=== PATIENT | male | born 1970 | race Caucasian/White ===

== ENCOUNTER → 2018-01-08 | Outpatient (CLI) | payer BC ==
--- NOTE | 2018-01-08 16:34 | CONS ---
CONSULTATION DATE OF SERVICE: 01/08/2018 47-year-old gentleman has [facility] for possible obstructive sleep apnea-hypopnea syndrome. HISTORY OF PRESENT ILLNESS/SLEEP WAKE EVALUATION: SLEEP SCHEDULE: Patient usual sleep schedule from midnight until 5:00 a.m. on working days and from midnight to 10 or 10:30 am on weekends. FALLING ASLEEP: No problems with falling asleep, although he has TV set in bedroom. DURING SLEEP: Usually sleeps on the back position. According to his , he has loud snoring and witnessed episodes of stopped breathing during the sleep. He has episodes of awakening from sleep with palpitations. He sleeps with sometimes opening his mouth at night. DURING THE DAY/SLEEP WAKE EVALUATION: During the day, he has episodes of falling asleep, has problem with the memory. [place] Sleepiness Scale significantly increased to 11. PAST MEDICAL HISTORY: Positive for episodes of paroxysmal atrial fibrillation, happened for the last 15 years, about 1-2 times per year, hyperlipidemia. PAST SURGICAL HISTORY: Bilateral hip osteotomy in 1976. MEDICATIONS: Losartan, Zocor, Flecainide on p.r.n. basis. SOCIAL HISTORY: Negative for smoking. Alcohol consumption rarely. FAMILY HISTORY: Heart problems, hyperlipidemia. REVIEW OF SYSTEMS: Breathing during sleep with open-mouth, snoring, witnessed episodes of stopped breathing, sleepiness during the day, episodes of cardiac arrhythmia. PHYSICAL EXAM: gentleman without distress. BP 124/76, HR 82, RR 16, height 5 feet 11 inches, weight 245, BMI 34.1, temperature 98.5, oxygen saturation on room air 96%. Oropharynx extremely low position of soft palate. Restriction of nasal breathing, wide neck, 18 inches in circumference. LUNGS Clear to percussion and to auscultation. Good air exchange. No wheezing or rhonchi. HEART S1, S2 regular. No murmurs, gallops, or rubs. ABDOMEN: Slightly obese. Soft and nontender. Bowel sounds are present. No organomegaly appreciated. FABRIC INSPECTOR Awake, alert, and oriented X3. Cranial nerves 2 to 7 intact. There is no fasciculation or atrophy. noted. No focal deficits observed. EXTREMITIES: Tendency for swelling of ankles, very minimal. IMPRESSION: 1. Snoring, witnessed episodes of stopped breathing during the sleep, extremely low position of soft palate. Restriction of nasal breathing, wide neck 18 inches in circumference. Excessive daytime sleepiness. [place] Sleepiness Scale is 11. Obstructive sleep apnea-hypopnea syndrome. 2. Obesity, BMI 34.1. 3. History of paroxysmal atrial fibrillation. 4. Hyperlipidemia. 5. Status post bilateral hip osteotomy in 1976. PLAN: 1. Polysomnography for evaluation of patient's breathing during sleep. 2. CPAP/BiPAP titration if sleep study confirms obstructive sleep apnea-hypopnea syndrome. 3. Preferable position during sleep on the side. 4. No driving if patient feels any sleepiness. 5. I will see patient for follow up visit to explain results of testing and following plan. Thank you very much for referring this patient for consultation. Sincerely, Cresencio Fleming MD, PhD, FAASM Diplomat of [place] [employer] [employer] Operator of [facility] [place] MMODL / CLAUDIAN: [phone] /
== END | disposition home or self-care (01) ==
LOC: SLEEP 14:36
PROVIDERS: ATTEND Internal Medicine
DX: G47.33 Obstructive sleep apnea (adult) (pediatric) (principal); E66.9 Obesity, unspecified; E78.5 Hyperlipidemia, unspecified; Z68.34 Body mass index [BMI] 34.0-34.9, adult; Z86.79 Personal history of other diseases of the circulatory system; Z98.890 Other specified postprocedural states; Z79.899 Other long term (current) drug therapy
CPT/HCPCS: 99211

== ENCOUNTER 2019-03-05 03:01 | Emergency (ER) | payer BC ==
[2019-03-05 03:10] VITALS: RESP 18; TEMP 98.8
[2019-03-05 03:49] LABS: Basophils % (A) 0 %; Eosinophils # (A) 0.1 k/uL (0-0.7); Eosinophils % (A) 1 %; HCT 47.4 % (39.0-53.0); HGB 15.9 gm/dL (13.0-17.5); Lymphocytes # (A) 1.3 k/uL (1.0-4.8); Lymphocytes % (A) 11 %; MCHC 33.6 g/dL (31.0-37.0); MCV 89.1 fL (80.0-100.0); Monocytes # (A) 0.8 k/uL (0-1.0); Monocytes % (A) 7 %; Neutrophils # (A) 9.1 k/uL (1.3-7.7); Neutrophils % (A) 79 %; Platelet Count 291 k/uL (150-450); RBC 5.32 m/uL (4.30-5.90); RDW 13.3 % (11.5-15.5); WBC 11.5 k/uL (3.8-10.6)
[2019-03-05] MEDS ORDERED: KETOROLAC 30 MG/ML 1 ML VIAL IVP STA (03:50)
[2019-03-05] MEDS ORDERED: SODIUM CHLORIDE 0.9% 500 ML 500 ML IV STA (03:50)
--- NOTE | 2019-03-05 03:53 | ED ---
Abdominal Pain HPI - General Chief Complaint: Abdominal Pain Stated Complaint: Abd Pain Time Seen by Provider: 03/05/19 03:44 Source: patient Mode of arrival: ambulatory Limitations: no limitations - History of Present Illness MD Complaint: abdominal pain -: hour(s) Location: periumbilical Radiation: none Migration to: no migration Severity: severe Quality: aching Consistency: constant Improves With: nothing Worsens With: other (Palpation) Associated Symptoms: nausea, diarrhea - Related Data Home Medications Medication Instructions Recorded Confirmed Flecainide [Tambocor] 50 mg PO Q12HR 03/05/19 03/05/19 Lisinopril [Prinivil] 10 mg PO DAILY 03/05/19 03/05/19 Simvastatin [Zocor] 20 mg PO HS 03/05/19 03/05/19 Allergies Allergy/AdvReac Type Severity Reaction Status Date / Time codeine Allergy Unknown Verified 02/04/14 23:48 morphine Allergy Unknown Verified 02/04/14 23:48 Review of Systems ROS Statement: Those systems with pertinent positive or pertinent negative responses have been documented in the HPI. ROS Other: All systems not noted in ROS Statement are negative. Constitutional: Denies: fever, chills Respiratory: Denies: cough, dyspnea Cardiovascular: Denies: chest pain Gastrointestinal: Reports: abdominal pain, nausea, diarrhea. Denies: vomiting, constipation, melena, hematochezia Genitourinary: Denies: dysuria, hematuria, testicular pain Musculoskeletal: Denies: back pain Skin: Denies: rash Neurological: Denies: headache Past Medical History Past Medical History: Atrial Fibrillation History of Any Multi-Drug Resistant Organisms: None Reported Past Surgical History: Orthopedic Surgery Additional Past Surgical History / Comment(s): Hip 1976, rotational osteotomy Past Anesthesia/Blood Transfusion Reactions: No Reported Reaction Past Psychological History: No Psychological Hx Reported Smoking Status: Never smoker Past Alcohol Use History: None Reported Past Drug Use History: None Reported - Past Family History Mother Family Medical History: Myocardial Infarction ([place]) General Exam Limitations: no limitations General appearance: alert, in no apparent distress Head exam: Present: atraumatic, normocephalic Eye exam: Present: normal appearance. Absent: scleral icterus, conjunctival injection ENT exam: Present: normal oropharynx Respiratory exam: Present: normal lung sounds bilaterally. Absent: respiratory distress, wheezes, rales, rhonchi, stridor Cardiovascular Exam: Present: regular rate, normal rhythm, normal heart sounds. Absent: systolic murmur, diastolic murmur, rubs, gallop GI/Abdominal exam: Present: soft, tenderness, guarding, normal bowel sounds, hernia (There is a tender umbilical hernia was easily reduced at the bedside.). Absent: distended, rebound, rigid, mass, pulsatile mass Extremities exam: Present: normal inspection, normal capillary refill. Absent: pedal edema, calf tenderness Back exam: Present: normal inspection. Absent: CVA tenderness (R), CVA tenderness (L) Neurological exam: Present: alert Skin exam: Present: warm, dry, intact, normal color. Absent: rash Course Vital Signs 03/05/19 03:07 Temperature 98.8 F Pulse Rate 54 L Respiratory 18 Rate Blood Pressure 145/90 O2 Sat by Pulse 95 Oximetry Medical Decision Making - Lab Data Result diagrams: 03/05/19 03:25 03/05/19 03:25 Lab Results 03/05/19 03/05/19 Range/Units 03:25 03:25 WBC 11.5 H (3.8-10.6) k/uL RBC 5.32 (4.30-5.90) m/uL Hgb 15.9 (13.0-17.5) gm/dL Hct 47.4 (39.0-53.0) % MCV 89.1 (80.0-100.0) fL MCH 30.0 (25.0-35.0) pg MCHC 33.6 (31.0-37.0) g/dL RDW 13.3 (11.5-15.5) % Plt Count 291 (150-450) k/uL Neutrophils % 79 % Lymphocytes % 11 % Monocytes % 7 % Eosinophils % 1 % Basophils % 0 % Neutrophils # 9.1 H (1.3-7.7) k/uL Lymphocytes # 1.3 (1.0-4.8) k/uL Monocytes # 0.8 (0-1.0) k/uL Eosinophils # 0.1 (0-0.7) k/uL Basophils # 0.0 (0-0.2) k/uL Sodium 139 (137-145) mmol/L Potassium 4.1 (3.5-5.1) mmol/L Chloride 105 (98-107) mmol/L Carbon Dioxide 21 L (22-30) mmol/L Anion Gap 13 mmol/L BUN 16 (9-20) mg/dL Creatinine 0.89 (0.66-1.25) mg/dL Est GFR (CKD-EPI)AfAm >90 (>60 ml/min/1.73 sqM) Est GFR (CKD-EPI)NonAf >90 (>60 ml/min/1.73 sqM) Glucose 162 H (74-99) mg/dL Calcium 9.6 (8.4-10.2) mg/dL Total Bilirubin 0.7 (0.2-1.3) mg/dL AST 26 (17-59) U/L ALT 41 (21-72) U/L Alkaline Phosphatase 105 (38-126) U/L Total Protein 7.9 (6.3-8.2) g/dL Albumin 4.7 (3.5-5.0) g/dL Amylase 41 (30-110) U/L Lipase 69 (23-300) U/L Disposition Clinical Impression: Umbilical hernia Disposition: HOME SELF-CARE Condition: Good Instructions (If sedation given, give patient instructions): Umbilical Hernia (ED) Is patient prescribed a controlled substance at d/c from ED?: No Referrals: Yaakov Mcdaniel MD [Primary Care Provider] - 1-2 days Nic Jean MD [Medical Doctor] - 1-2 days
[2019-03-05 04:03] LABS: ALT 41 U/L (21-72); AST 26 U/L (17-59); African American GFR (CKD) >90 (>60 ml/min/1.73 sqM); Albumin 4.7 g/dL (3.5-5.0); Alkaline Phosphatase 105 U/L (38-126); Amylase 41 U/L (30-110); Anion Gap 13 mmol/L; Blood Urea Nitrogen 16 mg/dL (9-20); Calcium 9.6 mg/dL (8.4-10.2); Carbon Dioxide 21 mmol/L (22-30); Chloride 105 mmol/L (98-107); Glucose 162 mg/dL (74-99); Non-African American GFR(CKD) >90 (>60 ml/min/1.73 sqM); Potassium 4.1 mmol/L (3.5-5.1); Sodium 139 mmol/L (137-145); Total Bilirubin 0.7 mg/dL (0.2-1.3); Total Protein 7.9 g/dL (6.3-8.2)
--- NOTE | 2019-03-05 04:04 | XR ---
EXAMINATION TYPE: XR KUB DATE OF EXAM: 03/05/2019 COMPARISON: NONE HISTORY: Abdominal pain TECHNIQUE: 2 views upright FINDINGS: There are some distended gas-filled loops of small bowel in the mid abdomen. There is no si gn of free air. Lung bases are clear. There is small amount of gas in the large bowel. IMPRESSION: No free air. Distended small bowel with gas that could relate to ileus or partial mechani juan obstruction.
[2019-03-05 06:34] LABS: Amorphous Sediment,Urine Rare /hpf; Appearance,Urine Cloudy (Clear); Bacteria,Urine Rare /hpf; Bilirubin,Urine Negative (Negative); Blood,Urine Negative (Negative); Color,Urine Yellow; Glucose,Urine (UA) Negative (Negative); Hyaline Casts,Urine 17 /lpf (0-2); Ketones,Urine Negative (Negative); Leukocyte Esterase,Urine Negative (Negative); Mucus,Urine Many /hpf; Nitrite,Urine Negative (Negative); PH, Urine 5.5 (5.0-8.0); Protein,Urine 1+ (Negative); RBC,Urine <1 /hpf (0-5); Specific Gravity,Urine 1.034 (1.001-1.035); Squamous Epithelial Cell,Urine <1 /hpf (0-4); Urobilinogen,Urine <2.0 mg/dL (<2.0)
[2019-03-05 06:37] VITALS: BP 138/93; PULSE 86
== END 2019-03-05 06:37 | disposition home or self-care (01) ==
LOC: EC 03:01
DX: K42.9 Umbilical hernia without obstruction or gangrene (principal); R19.7 Diarrhea, unspecified; I48.91 Unspecified atrial fibrillation; Z88.5 Allergy status to narcotic agent; Z79.899 Other long term (current) drug therapy
CPT/HCPCS: 36415; 74018; 80053; 81001; 82150; 83690; 85025; 96361; 96374; 99284

== ENCOUNTER 2019-03-06 22:45 | Observation (INO) | payer BC ==
[2019-03-06] MEDS ORDERED: MORPHINE SULFATE 4 MG/ML SYRINGE IVP STA (23:42)
[2019-03-07 00:18] LABS: Basophils % (A) 0 %; Eosinophils # (A) 0.1 k/uL (0-0.7); Eosinophils % (A) 2 %; HCT 49.1 % (39.0-53.0); HGB 16.7 gm/dL (13.0-17.5); Lymphocytes # (A) 1.3 k/uL (1.0-4.8); Lymphocytes % (A) 15 %; MCH 30.1 pg (25.0-35.0); MCHC 33.9 g/dL (31.0-37.0); MCV 88.7 fL (80.0-100.0); Mean Platelet Volume 7.6; Monocytes % (A) 11 %; Neutrophils # (A) 5.8 k/uL (1.3-7.7); Neutrophils % (A) 69 %; Platelet Count 313 k/uL (150-450); RBC 5.54 m/uL (4.30-5.90); RDW 13.2 % (11.5-15.5); WBC 8.4 k/uL (3.8-10.6)
[2019-03-07 00:20] LABS: Appearance,Urine Clear (Clear); Bilirubin,Urine Negative (Negative); Blood,Urine Negative (Negative); Calcium Oxalate Crystals,Urine Occasional /hpf; Color,Urine Yellow; Glucose,Urine (UA) Negative (Negative); Hyaline Casts,Urine 1 /lpf (0-2); Ketones,Urine Negative (Negative); Leukocyte Esterase,Urine Negative (Negative); Mucus,Urine Many /hpf; Nitrite,Urine Negative (Negative); Protein,Urine 1+ (Negative); RBC,Urine 2 /hpf (0-5); Specific Gravity,Urine 1.037 (1.001-1.035); Squamous Epithelial Cell,Urine <1 /hpf (0-4); Urobilinogen,Urine <2.0 mg/dL (<2.0); WBC,Urine 1 /hpf (0-5)
[2019-03-07 00:26] LABS: INR 0.9 (<1.2); Partial Thromboplastin Time 27.6 sec (22.0-30.0); Prothrombin Time 10.2 sec (9.0-12.0)
[2019-03-07 00:31] LABS: ALT 49 U/L (21-72); AST 22 U/L (17-59); African American GFR (CKD) >90 (>60 ml/min/1.73 sqM); Albumin 4.4 g/dL (3.5-5.0); Alkaline Phosphatase 95 U/L (38-126); Anion Gap 12 mmol/L; Blood Urea Nitrogen 18 mg/dL (9-20); Calcium 9.6 mg/dL (8.4-10.2); Carbon Dioxide 21 mmol/L (22-30); Chloride 105 mmol/L (98-107); Glucose 147 mg/dL (74-99); Non-African American GFR(CKD) 89 (>60 ml/min/1.73 sqM); Potassium 3.7 mmol/L (3.5-5.1); Sodium 138 mmol/L (137-145); Total Bilirubin 0.7 mg/dL (0.2-1.3); Total Protein 7.2 g/dL (6.3-8.2)
--- NOTE | 2019-03-07 01:16 | CT ---
EXAMINATION TYPE: CT abdomen pelvis w con DATE OF EXAM: 03/07/2019 COMPARISON: None HISTORY: umbilical hernia pain CT DLP: 1649.8 mGycm Automated exposure control for dose reduction was used. TECHNIQUE: Helical acquisition of images was performed from the lung bases through the pelvis. CONTRAST: Performed without Oral Contrast and with IV Contrast, patient injected with 100 mL of Isovue 300. FINDINGS: Lung bases are clear. There is no pleural effusion. Heart size is normal. There is no pericardial eff usion. Liver spleen pancreas, bladder appear normal. Bile ducts are not dilated. Stomach is intact. There is no adrenal mass. Kidneys show satisfactory contrast opacification. There is no hydronephrosi s. Bladder is almost empty. There is no inguinal hernia. There is no free fluid in the pelvis. Append ix appears normal. Ureters are not dilated. There are some distended air and fluid-filled small bowel loops in the mid abdomen. The distal ileum is not dilated. Small bowel is dilated up to 3.6 cm. There is broad-based umbilical hernia that contains fat. There is no evidence of incarcerated hernia. There is no mesenteric edema. There is no ascites. There is no free air. Lumbar spine is intact. There is narrowing of L5-S1 disc space with vacuum disc. There is no compress ion fracture. Bony pelvis is intact. IMPRESSION: DILATED SMALL BOWEL SUGGESTIVE OF ILEUS OR PARTIAL MECHANICAL OBSTRUCTION. TRANSITION POINT NOT SEEN. Normal appendix. No incarcerated bowel. Broad-based fat-containing umbilical hernia.
--- NOTE | 2019-03-07 01:47 | ED ---
General Adult HPI - General Chief complaint: Recheck/Abnormal Lab/Rx Stated complaint: Abdominal Pain Time Seen by Provider: 03/06/19 23:05 Source: patient Mode of arrival: ambulatory Limitations: no limitations - History of Present Illness Initial comments: The patient is a 48 year old male with past medical history of A. fib who presents emergency room with reported abdominal pain. The patient was seen yesterday at our facility for periumbilical pain. He is found to have an easily reducible umbilical hernia. Laboratory studies were conducted as well as a KUB. The patient received adequate pain control with Toradol and was discharged home. He states that he went home and today he had return of his abdominal pain. It was much more severe than yesterday. He states that the pain is situated around his umbilicus as well as diffuse abdominal pain. He did not take anything for his symptoms. Reports that he has had profuse watery diarrhea . No recent antibiotic use or contact with C. diff. He denies changes in his urination to include dysuria, hematuria or difficulty voiding. States he hasn't been able to eat anything today due to nausea. No fevers or chills. Denies any change in the umbilical bulge. There are no other alleviating, precipitating or modifying factors - Related Data Home Medications Medication Instructions Recorded Confirmed Flecainide [Tambocor] 50 mg PO Q12HR PRN 03/05/19 03/07/19 Lisinopril [Prinivil] 10 mg PO DAILY 03/05/19 03/07/19 Simvastatin [Zocor] 20 mg PO HS 03/05/19 03/07/19 Allergies Allergy/AdvReac Type Severity Reaction Status Date / Time codeine Allergy Unknown Verified 03/07/19 07:47 Review of Systems ROS Statement: Those systems with pertinent positive or pertinent negative responses have been documented in the HPI. ROS Other: All systems not noted in ROS Statement are negative. Past Medical History Past Medical History: Atrial Fibrillation History of Any Multi-Drug Resistant Organisms: None Reported Past Surgical History: Orthopedic Surgery Additional Past Surgical History / Comment(s): Hip 1976, rotational osteotomy Past Anesthesia/Blood Transfusion Reactions: No Reported Reaction Past Psychological History: No Psychological Hx Reported Smoking Status: Never smoker Past Alcohol Use History: None Reported Past Drug Use History: None Reported - Past Family History Mother Family Medical History: Myocardial Infarction ([place]) General Exam Limitations: no limitations General appearance: alert, in no apparent distress Head exam: Present: atraumatic, normocephalic, normal inspection Eye exam: Present: normal appearance, PERRL, EOMI. Absent: scleral icterus, conjunctival injection, periorbital swelling ENT exam: Present: normal exam, mucous membranes moist Neck exam: Present: normal inspection. Absent: tenderness, meningismus, lymphadenopathy Respiratory exam: Present: normal lung sounds bilaterally. Absent: respiratory distress, wheezes, rales, rhonchi, stridor Cardiovascular Exam: Present: regular rate, normal rhythm, normal heart sounds. Absent: systolic murmur, diastolic murmur, rubs, gallop, clicks GI/Abdominal exam: Present: soft, distended, tenderness (periumbilical, with her roslyn that is easily reducible), diminished bowel sounds. Absent: guarding, rebound, rigid Extremities exam: Present: normal inspection, full ROM, normal capillary refill. Absent: tenderness, pedal edema, joint swelling, calf tenderness Back exam: Present: normal inspection Neurological exam: Present: alert, oriented X3, CN II-XII intact Psychiatric exam: Present: normal affect, normal mood Skin exam: Present: warm, dry, intact, normal color. Absent: rash Course Vital Signs 03/06/19 03/07/19 23:03 01:06 Temperature 97.9 F Pulse Rate 107 H 88 Respiratory 16 18 Rate Blood Pressure 127/82 129/85 O2 Sat by Pulse 97 98 Oximetry Medical Decision Making - Medical Decision Making Upon arrival the patient was placed into room 3. A thorough history and physical exam is performed. Physical exam does demonstrate a small bulge in the periumbilical region however this is easily reduced but very tender for the patient. I did provide him with 4 mg of morphine. I did recommend laboratory studies which demonstrates a glucose of 147. Urinalysis shows occasional calcium oxide crystals and 1+ protein. CT of the patient's abdomen and pelvis is performed which demonstrates dilated small bowel suggestive of ileus or partial mechanical obstruction without transition point. Broadbase fat- containing umbilical hernia. I did revaluate the patient is a he does report that he has had mild improvement with the morphine administration. I discussed diagnosis, differential and treatment options. Patient is concerned with discharge at this time as this is his second visit to the ER and his pain has not completely resided. Because of this I did offer hospital admission with surgical consult. The patient understood this. Bridging orders were placed and the patient was transferred to the floor in stable condition - Lab Data Result diagrams: 03/08/19 06:26 03/10/19 07:08 Lab Results 03/06/19 03/06/19 03/06/19 Range/Units 23:51 23:51 23:51 WBC 8.4 (3.8-10.6) k/uL RBC 5.54 (4.30-5.90) m/uL Hgb 16.7 (13.0-17.5) gm/dL Hct 49.1 (39.0-53.0) % MCV 88.7 (80.0-100.0) fL MCH 30.1 (25.0-35.0) pg MCHC 33.9 (31.0-37.0) g/dL RDW 13.2 (11.5-15.5) % Plt Count 313 (150-450) k/uL Neutrophils % 69 % Lymphocytes % 15 % Monocytes % 11 % Eosinophils % 2 % Basophils % 0 % Neutrophils # 5.8 (1.3-7.7) k/uL Lymphocytes # 1.3 (1.0-4.8) k/uL Monocytes # 1.0 (0-1.0) k/uL Eosinophils # 0.1 (0-0.7) k/uL Basophils # 0.0 (0-0.2) k/uL PT (9.0-12.0) sec INR (<1.2) APTT (22.0-30.0) sec Sodium 138 (137-145) mmol/L Potassium 3.7 (3.5-5.1) mmol/L Chloride 105 (98-107) mmol/L Carbon Dioxide 21 L (22-30) mmol/L Anion Gap 12 mmol/L BUN 18 (9-20) mg/dL Creatinine 1.00 (0.66-1.25) mg/dL Est GFR (CKD-EPI)AfAm >90 (>60 ml/min/1.73 sqM) Est GFR (CKD-EPI)NonAf 89 (>60 ml/min/1.73 sqM) Glucose 147 H (74-99) mg/dL Plasma Lactic Acid Thomas 1.7 (0.7-2.0) mmol/L Calcium 9.6 (8.4-10.2) mg/dL Total Bilirubin 0.7 (0.2-1.3) mg/dL AST 22 (17-59) U/L ALT 49 (21-72) U/L Alkaline Phosphatase 95 (38-126) U/L Total Protein 7.2 (6.3-8.2) g/dL Albumin 4.4 (3.5-5.0) g/dL Urine Color Urine Appearance (Clear) Urine pH (5.0-8.0) Ur Specific [place] (1.001-1.035) Urine Protein (Negative) Urine Glucose (UA) (Negative) Urine Ketones (Negative) Urine Blood (Negative) Urine Nitrite (Negative) Urine Bilirubin (Negative) Urine Urobilinogen (<2.0) mg/dL Ur Leukocyte Esterase (Negative) Urine RBC (0-5) /hpf Urine WBC (0-5) /hpf Ur Squamous Epith Cells (0-4) /hpf Calcium Oxalate Crystal (None) /hpf Hyaline Casts (0-2) /lpf Urine Mucus (None) /hpf 03/06/19 03/06/19 Range/Units 23:51 23:51 WBC (3.8-10.6) k/uL RBC (4.30-5.90) m/uL Hgb (13.0-17.5) gm/dL Hct (39.0-53.0) % MCV (80.0-100.0) fL MCH (25.0-35.0) pg MCHC (31.0-37.0) g/dL RDW (11.5-15.5) % Plt Count (150-450) k/uL Neutrophils % % Lymphocytes % % Monocytes % % Eosinophils % % Basophils % % Neutrophils # (1.3-7.7) k/uL Lymphocytes # (1.0-4.8) k/uL Monocytes # (0-1.0) k/uL Eosinophils # (0-0.7) k/uL Basophils # (0-0.2) k/uL PT 10.2 (9.0-12.0) sec INR 0.9 (<1.2) APTT 27.6 (22.0-30.0) sec Sodium (137-145) mmol/L Potassium (3.5-5.1) mmol/L Chloride (98-107) mmol/L Carbon Dioxide (22-30) mmol/L Anion Gap mmol/L BUN (9-20) mg/dL Creatinine (0.66-1.25) mg/dL Est GFR (CKD-EPI)AfAm (>60 ml/min/1.73 sqM) Est GFR (CKD-EPI)NonAf (>60 ml/min/1.73 sqM) Glucose (74-99) mg/dL Plasma Lactic Acid Thomas (0.7-2.0) mmol/L Calcium (8.4-10.2) mg/dL Total Bilirubin (0.2-1.3) mg/dL AST (17-59) U/L ALT (21-72) U/L Alkaline Phosphatase (38-126) U/L Total Protein (6.3-8.2) g/dL Albumin (3.5-5.0) g/dL Urine Color Yellow Urine Appearance Clear (Clear) Urine pH 6.0 (5.0-8.0) Ur Specific [place] 1.037 H (1.001-1.035) Urine Protein 1+ H (Negative) Urine Glucose (UA) Negative (Negative) Urine Ketones Negative (Negative) Urine Blood Negative (Negative) Urine Nitrite Negative (Negative) Urine Bilirubin Negative (Negative) Urine Urobilinogen <2.0 (<2.0) mg/dL Ur Leukocyte Esterase Negative (Negative) Urine RBC 2 (0-5) /hpf Urine WBC 1 (0-5) /hpf Ur Squamous Epith Cells <1 (0-4) /hpf Calcium Oxalate Crystal Occasional H (None) /hpf Hyaline Casts 1 (0-2) /lpf Urine Mucus Many H (None) /hpf Disposition Clinical Impression: Umbilical hernia, Ileus Disposition: ADMITTED IP TO THIS [facility] Condition: Stable Is patient prescribed a controlled substance at d/c from ED?: No Decision to Admit Reason: Admit from EC Decision Date: 03/07/19 Decision Time: 01:47
[2019-03-07] MEDS ORDERED: ONDANSETRON 4 MG/2 ML VIAL IVP PRN (01:48)
[2019-03-07] MEDS ORDERED: NALOXONE 0.4 MG/ML 1 ML VIAL IV PRN (01:48)
[2019-03-07] MEDS: SODIUM CHLORIDE 0.9% 1,000 ML IV SCH ×3 (02:03→19:46)
[2019-03-07] MEDS: MORPHINE SULFATE 4 MG/ML SYRINGE IV PRN ×2 (04:11→11:55)
[2019-03-07] MEDS: LISINOPRIL 10 MG TAB PO SCH (08:22)
--- NOTE | 2019-03-07 10:36 | P.GSCN ---
History of Present Illness Consult date: 03/07/19 Reason for Consult: Abdominal pain History of present illness: 48-year-old male comes in the hospital with a 3 to four-day history of abdominal bloating, diarrhea, and crampy abdominal pain. Pain is centered around the umbilicus. History of known umbilical hernia. Patient says he was having up to 10-15 bowel moments per day. Patient had abdominal x-rays when he came to the ER the first time. Yesterday when he came back to the ER CAT scan was performed which showed ileus versus SBO. No transition point seen. Gradual tapering at the junction between dilated and normal small bowel. 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 He has been nauseated. White blood cell count is normal. He is afebrile. No tachycardia. Review of Systems The patient denies any acute changes in vision or hearing, no dysphagia or odynophagia, no chest pain or shortness of breath, no dysuria or hematuria, no headache, no runny nose, no rectal bleeding or melena, no unexplained weight loss Past Medical History Past Medical History: Atrial Fibrillation History of Any Multi-Drug Resistant Organisms: None Reported Past Surgical History: Orthopedic Surgery Additional Past Surgical History / Comment(s): Hip 1976, rotational osteotomy Past Anesthesia/Blood Transfusion Reactions: No Reported Reaction Past Psychological History: No Psychological Hx Reported Smoking Status: Never smoker Past Alcohol Use History: None Reported Past Drug Use History: None Reported - Past Family History Mother Family Medical History: Myocardial Infarction ([place]) Medications and Allergies Home Medications Medication Instructions Recorded Confirmed Type Flecainide [Tambocor] 50 mg PO Q12HR PRN 03/05/19 03/07/19 History Lisinopril [Prinivil] 10 mg PO DAILY 03/05/19 03/07/19 History Simvastatin [Zocor] 20 mg PO HS 03/05/19 03/07/19 History Allergies Allergy/AdvReac Type Severity Reaction Status Date / Time codeine Allergy Unknown Verified 03/07/19 07:47 Surgical - Exam Vital Signs Temp Pulse Resp BP Pulse Ox 97.9 F 107 H 16 127/82 97 03/06/19 23:03 03/06/19 23:03 03/06/19 23:03 03/06/19 23:03 03/06/19 23:03 Physical exam: General: Well-developed, well-nourished HEENT: Normocephalic, sclerae nonicteric Abdomen: Mild distention, small umbilical hernia, mild diffuse tenderness Extremities: No edema Neuro: Alert and oriented Results - Labs 03/06/19 23:51 03/06/19 23:51 Abnormal Lab Results - Last 24 Hours (Table) 03/06/19 03/06/19 Range/Units 23:51 23:51 Carbon Dioxide 21 L (22-30) mmol/L Glucose 147 H (74-99) mg/dL Ur Specific [place] 1.037 H (1.001-1.035) Urine Protein 1+ H (Negative) Calcium Oxalate Crystal Occasional H (None) /hpf Urine Mucus Many H (None) /hpf Diabetes panel 03/06/19 Range/Units 23:51 Sodium 138 (137-145) mmol/L Potassium 3.7 (3.5-5.1) mmol/L Chloride 105 (98-107) mmol/L Carbon Dioxide 21 L (22-30) mmol/L BUN 18 (9-20) mg/dL Creatinine 1.00 (0.66-1.25) mg/dL Glucose 147 H (74-99) mg/dL Calcium 9.6 (8.4-10.2) mg/dL AST 22 (17-59) U/L ALT 49 (21-72) U/L Alkaline Phosphatase 95 (38-126) U/L Total Protein 7.2 (6.3-8.2) g/dL Albumin 4.4 (3.5-5.0) g/dL Calcium panel 03/06/19 Range/Units 23:51 Calcium 9.6 (8.4-10.2) mg/dL Albumin 4.4 (3.5-5.0) g/dL Pituitary panel 03/06/19 Range/Units 23:51 Sodium 138 (137-145) mmol/L Potassium 3.7 (3.5-5.1) mmol/L Chloride 105 (98-107) mmol/L Carbon Dioxide 21 L (22-30) mmol/L BUN 18 (9-20) mg/dL Creatinine 1.00 (0.66-1.25) mg/dL Glucose 147 H (74-99) mg/dL Calcium 9.6 (8.4-10.2) mg/dL Adrenal panel 03/06/19 Range/Units 23:51 Sodium 138 (137-145) mmol/L Potassium 3.7 (3.5-5.1) mmol/L Chloride 105 (98-107) mmol/L Carbon Dioxide 21 L (22-30) mmol/L BUN 18 (9-20) mg/dL Creatinine 1.00 (0.66-1.25) mg/dL Glucose 147 H (74-99) mg/dL Calcium 9.6 (8.4-10.2) mg/dL Total Bilirubin 0.7 (0.2-1.3) mg/dL AST 22 (17-59) U/L ALT 49 (21-72) U/L Alkaline Phosphatase 95 (38-126) U/L Total Protein 7.2 (6.3-8.2) g/dL Albumin 4.4 (3.5-5.0) g/dL Assessment and Plan (1) Ileus Narrative/Plan: Continue clear liquids as ordered. Check repeat abdominal x-rays tomorrow. Check stool cultures and C. diff. Will follow. Current Visit: Yes Status: Acute Code(s): K56.7 - ILEUS, [facility] [place] [facility] Code(s): 764479231
[2019-03-07] MEDS: ATORVASTATIN 10 MG TAB PO SCH (19:46)
--- NOTE | 2019-03-07 20:43 | P.HPIM ---
History of Present Illness H&P Date: 03/07/19 Chief Complaint: Abdominal pain History of presenting complaint: This is a very pleasant 48-year-old patient of Dr. Mcdaniel. Patient has a chronic history of atrial fibrillation. Not felt to be a candidate for anticoagulation. Patient been having some loose stools for a few days. 2 days ago started having central abdominal pain and distention. Presented to the ER but the pain became more. Found to have a umbilical hernia, that was reduced. Patient felt okay subsequently against patient started having more abdominal pain and distention. No fever no chills. Computed tomography scan of the abdomen showed air and fluid-filled small bowel loops in the mid abdomen. Also was noted to Brost placed mitral hernia with no evidence of any incarcerated hernia.. Patient is felt to ileus. Patient denies any prior abdominal surgery. General surgery was consulted. This morning patient feeling a bit better. Has positive flatus. Slight decrease in abdominal distention. There wasn't felt any need for NG tube. No fever no chills. Review of systems: GEN.: Tired EYES: None HEENT: None NECK: None RESPIRATORY: None CARDIOVASCULAR: None GASTROINTESTINAL: As above GENITOURINARY: None MUSCULOSKELETAL: None LYMPHATICS: None HEMATOLOGICAL: None PSYCHIATRY: None NEUROLOGICAL: None Past medical history to include: Atrial fibrillation Social history: Does not smoke or drink alcohol. Works as a registered nurse at [employer]. . Denies use of any recreational drugs. Physical examination: VITAL SIGNS: 97.9, 107, 16, 127/82, 97% on room air upon presentation GENERAL: BMI 33.1, laying in bed slightly uncomfortable. EYES: Pupils equal. Conjunctiva normal. HEENT: External appearance of nose and ears normal, oral cavity grossly normal. NECK: JVD not raised; masses not palpable. HEART: First and second heart sounds are normal; no edema. LUNGS: Respiratory rate normal; clear to auscultation. ABDOMEN: Distended, mild tenderness, no guarding or rigidity, bowel sounds are hyperactive liver spleen not palpable. PSYCH: Alert and oriented x3; mood and affect normal. NEUROLOGICAL: Cranial nerves grossly intact; no facial asymmetry, power and sensation grossly intact. LYMPHATICS: No lymph nodes palpable in the axilla and neck INVESTIGATIONS, reviewed in the clinical context: White count 8.4 hemoglobin 6.7 platelets 313 potassium 3.7 creatinine 1.0 Computed tomography scan of the abdomen-umbilical hernia with no incarceration, evidence of small bowel ileus with questionable partial obstruction Abdominal x-ray from March 05-personally reviewed by me-shows dilatation of the small bowel Assessment: -Small bowel ileus versus partial obstruction. Patient's had a few days of loose stools. Has had some chills at home. No fever though. This could've been from a viral ileitis. -Umbilical hernia-with no obstruction -Obesity BMI 33.3 -Paroxysmal atrial fibrillation currently sinus rhythm Plan: Patient is being managed conservatively. General surgery was consulted. No need was held for NG tube. IV fluids are being given. Patient encouraged to ambulate. Lovenox for DVT prophylaxis. Care was discussed with the patient. Questions were answered. Past Medical History Past Medical History: Atrial Fibrillation History of Any Multi-Drug Resistant Organisms: None Reported Past Surgical History: Orthopedic Surgery Additional Past Surgical History / Comment(s): Hip 1976, rotational osteotomy Past Anesthesia/Blood Transfusion Reactions: No Reported Reaction Past Psychological History: No Psychological Hx Reported Smoking Status: Never smoker Past Alcohol Use History: None Reported Past Drug Use History: None Reported - Past Family History Mother Family Medical History: Myocardial Infarction ([place]) Medications and Allergies Home Medications Medication Instructions Recorded Confirmed Type Flecainide [Tambocor] 50 mg PO Q12HR PRN 03/05/19 03/07/19 History Lisinopril [Prinivil] 10 mg PO DAILY 03/05/19 03/07/19 History Simvastatin [Zocor] 20 mg PO HS 03/05/19 03/07/19 History Allergies Allergy/AdvReac Type Severity Reaction Status Date / Time codeine Allergy Unknown Verified 03/07/19 07:47 Physical Exam Vitals: Vital Signs Temp Pulse Pulse Resp BP BP Pulse Ox 03/07/19 15:00 98.1 F 102 H 17 120/84 95 03/07/19 07:00 98.2 F 104 H 17 126/86 96 03/07/19 02:20 97.5 F L 92 120/85 96 03/07/19 01:06 88 18 129/85 98 03/06/19 23:03 97.9 F 107 H 16 127/82 97 Intake and Output 03/07/19 03/07/19 03/07/19 06:59 14:59 22:59 Intake Total 1080 880 Balance 1080 880 Intake: Intake, IV Titration 500 100 Amount Sodium Chloride 0.9% 1, 500 100 000 ml @ 100 mls/hr IV . Q10H [facility] Rx#:[id number] Oral 580 780 Other: Voiding Method Toilet Toilet # Voids 1 2 # Bowel Movements 2 Weight 107.501 kg Results CBC & Chem 7: 03/06/19 23:51 03/06/19 23:51 Labs: Abnormal Lab Results - Last 24 Hours (Table) 03/06/19 03/06/19 Range/Units 23:51 23:51 Carbon Dioxide 21 L (22-30) mmol/L Glucose 147 H (74-99) mg/dL Ur Specific [place] 1.037 H (1.001-1.035) Urine Protein 1+ H (Negative) Calcium Oxalate Crystal Occasional H (None) /hpf Urine Mucus Many H (None) /hpf Thrombosis Risk Factor Assmnt - Choose All That Apply Any of the Below Risk Factors Present?: Yes Each Factor Represents 1 point: Age 41-60 years, Obesity (BMI >25) Thrombosis Risk Factor Assessment Total Risk Factor Score: 2 Thrombosis Risk Factor Assessment Level: Low Risk
[2019-03-08 06:58] LABS: Basophils % (A) 1 %; Eosinophils # (A) 0.2 k/uL (0-0.7); Eosinophils % (A) 3 %; HCT 45.3 % (39.0-53.0); HGB 14.8 gm/dL (13.0-17.5); Lymphocytes # (A) 1.5 k/uL (1.0-4.8); Lymphocytes % (A) 21 %; MCH 29.9 pg (25.0-35.0); MCHC 32.7 g/dL (31.0-37.0); MCV 91.5 fL (80.0-100.0); Mean Platelet Volume 7.6; Monocytes # (A) 0.8 k/uL (0-1.0); Monocytes % (A) 11 %; Neutrophils # (A) 4.6 k/uL (1.3-7.7); Neutrophils % (A) 62 %; Platelet Count 266 k/uL (150-450); RBC 4.95 m/uL (4.30-5.90); RDW 13.3 % (11.5-15.5); WBC 7.4 k/uL (3.8-10.6)
[2019-03-08 07:22] LABS: African American GFR (CKD) >90 (>60 ml/min/1.73 sqM); Anion Gap 9 mmol/L; Blood Urea Nitrogen 13 mg/dL (9-20); Calcium 8.8 mg/dL (8.4-10.2); Carbon Dioxide 22 mmol/L (22-30); Chloride 106 mmol/L (98-107); Glucose 112 mg/dL (74-99); Non-African American GFR(CKD) >90 (>60 ml/min/1.73 sqM); Potassium 3.7 mmol/L (3.5-5.1); Sodium 137 mmol/L (137-145)
[2019-03-08] MEDS: SODIUM CHLORIDE 0.9% 1,000 ML IV SCH ×3 (08:19→21:07)
[2019-03-08] MEDS: LISINOPRIL 10 MG TAB PO SCH (08:24)
--- NOTE | 2019-03-08 09:25 | XR ---
EXAMINATION TYPE: XR abdomen 2V DATE OF EXAM: 03/08/2019 CLINICAL HISTORY: Ileus progress study. TECHNIQUE: Supine and upright views of the abdomen are obtained. COMPARISON: CT from one day ago. FINDINGS: Gas is redemonstrated in nondistended stomach. There are gas-filled dilated small bowel loo ps through the upper to mid abdomen with air-fluid levels. There is nondistended colon in the periphe ry. Right-sided pelvic phleboliths. Osseous structures are intact. [id number] narrowing of both hip joints. IMPRESSION: Findings consistent with a persistent mid to distal small bowel obstruction. Continued ra diographic follow-up advised.
[2019-03-08] MEDS: ATORVASTATIN 10 MG TAB PO SCH (21:07)
[2019-03-08] MEDS ORDERED: BISMUTH SUBSALICYLATE 4,192 MG/240 ML BOTTLE PO PRN (21:12)
--- NOTE | 2019-03-08 21:14 | P.PN ---
Subjective Progress Note Date: 03/08/19 Principal diagnosis: Abdominal pain Patient tolerating clear liquids. Still feels bloated. Has no pain currently. Still having multiple loose stools per day. Thinks he may have had 15 loose stools today. C. difficile is negative. Stool cultures negative thus far. White blood cell count is normal. He is afebrile. He would like more to eat. He is walking quite a bit. Objective - Vital Signs Vital signs: Vital Signs Temp 98.6 F 03/08/19 14:40 Pulse 76 03/08/19 14:40 Resp 17 03/08/19 14:40 BP 108/63 03/08/19 14:40 Pulse Ox 95 03/08/19 14:40 Intake & Output 03/08/19 03/08/19 03/09/19 06:59 18:59 06:59 Intake Total 880 1500 450 Balance 880 1500 450 Intake: Intake, IV Titration 100 700 100 Amount Sodium Chloride 0.9% 1, 100 700 100 000 ml @ 100 mls/hr IV . Q10H [facility] Rx#:[id number] Oral 780 800 350 Other: Voiding Method Toilet Toilet # Voids 1 1 # Bowel Movements 1 1 - Exam Abdomen: Soft, mild distention, nontender, small umbilical hernia - Labs CBC & Chem 7: 03/08/19 06:26 03/08/19 06:26 Labs: Abnormal Lab Results - Last 24 Hours (Table) 03/08/19 Range/Units 06:26 Glucose 112 H (74-99) mg/dL Microbiology - Last 24 Hours (Table) 03/07/19 08:00 Stool Culture - Preliminary Stool Assessment and Plan (1) Ileus Narrative/Plan: Patient with multiple loose stools. Will add Pepto-Bismol when necessary. If culture is negative add Imodium. Advance diet to full liquids. Continue ambulation. Current Visit: Yes Status: Acute Code(s): K56.7 - ILEUS, UNSPECIFIED [facility] Code(s): 341872209
[2019-03-08 22:40] VITALS: RESP 16
[2019-03-08] MEDS: HEPARIN SODIUM,PORCINE 5,000 UNIT/ML 1 ML VIAL SQ SCH (22:52)
--- NOTE | 2019-03-09 00:01 | P.PN ---
Progress Note - Text Progress Note Date: 03/08/19 Chief Complaint: Abdominal pain Interval history: This is a very pleasant 48-year-old patient of Dr. Mcdaniel. Patient has a chronic history of atrial fibrillation. Not felt to be a candidate for anticoagulation. Patient been having some loose stools for a few days. 2 days ago started having central abdominal pain and distention. Presented to the ER but the pain became more. Found to have a umbilical hernia, that was reduced. Patient felt okay subsequently against patient started having more abdominal pain and distention. No fever no chills. Computed tomography scan of the abdomen showed air and fluid-filled small bowel loops in the mid abdomen. Also was noted to Brost placed mitral hernia with no evidence of any incarcerated hernia.. Patient is felt to ileus. Patient denies any prior abdominal surgery. General surgery was consulted. This morning patient feeling a bit better. Has positive flatus. Slight decrease in abdominal distention. There wasn't felt any need for NG tube. No fever no chills. Admitted with possible ileus Today-tolerate liquid diet. Feeling better. Had some liquid stools. Review of systems: Was done for constitutional, cardiovascular, GI, pulmonary. relevant finding as above Active Medications Atorvastatin Calcium (Lipitor) 10 mg PO HS [facility] Last Admin: 03/08/19 21:07 Dose: 10 mg Documented by: Bismuth Subsalicylate (Bismatrol) 524 mg PO Q1HR PRN PRN Reason: Diarrhea Stop: 03/09/19 05:00 Famotidine (Pepcid) 20 mg IV Q12HR [facility] Heparin Sodium (Porcine) (Heparin) 5,000 unit SQ Q8HR [facility] Last Admin: 03/08/19 22:52 Dose: Not Given Documented by: Sodium Chloride (Saline 0.9%) 1,000 mls @ 100 mls/hr IV .Q10H [facility] Last Admin: 03/08/19 21:07 Dose: 100 mls/hr Documented by: Lisinopril (Zestril) 10 mg PO DAILY [facility] Last Admin: 03/08/19 08:24 Dose: 10 mg Documented by: Morphine Sulfate (Morphine Sulfate (Inj)) 4 mg IV Q4HR PRN PRN Reason: Severe Pain Last Admin: 03/07/19 11:55 Dose: 4 mg Documented by: Naloxone HCl (Narcan) 0.2 mg IV Q2M PRN PRN Reason: Opioid Reversal Ondansetron HCl (Zofran) 4 mg IVP Q8HR PRN PRN Reason: Nausea And Vomiting Physical examination: VITAL SIGNS: 98.1, 98, 18, 121/81, 96% room air GENERAL: Sitting up feeling better. EYES: Pupils equal. Conjunctiva normal. HEENT: External appearance of nose and ears normal, oral cavity grossly normal. NECK: JVD not raised; masses not palpable. HEART: First and second heart sounds are normal; no edema. LUNGS: Respiratory rate normal; clear to auscultation. ABDOMEN: Less Distended, mild tenderness, no guarding or rigidity, bowel sounds are hyperactive liver spleen not palpable. PSYCH: Alert and oriented x3; mood and affect normal. INVESTIGATIONS, reviewed in the clinical context: White count 7.4 hemoglobin 14.8 progression 3.7 creatinine 0.95 Abdominal x-ray still showing some gas-filled dilated small bowel with air-fluid levels Previous testing White count 8.4 hemoglobin 6.7 platelets 313 potassium 3.7 creatinine 1.0 Computed tomography scan of the abdomen-umbilical hernia with no incarceration, evidence of small bowel ileus with questionable partial obstruction Abdominal x-ray from March 05-personally reviewed by me-shows dilatation of the small bowel Assessment: -Small bowel ileus versus partial obstruction. Patient's had a few days of loose stools. Has had some chills at home. No fever though. This could've been from a viral ileitis. Not much change radiologically some improvement clinically -Umbilical hernia-with no obstruction -Obesity BMI 33.3 -Paroxysmal atrial fibrillation currently sinus rhythm Plan: Patient is advanced to full liquid diet. Gen. surgery. Care was discussed with the patient. Follow along.
[2019-03-09] MEDS: HEPARIN SODIUM,PORCINE 5,000 UNIT/ML 1 ML VIAL SQ SCH ×3 (07:35→20:50)
[2019-03-09] MEDS: FAMOTIDINE 20 MG/2 ML VIAL IV SCH ×2 (07:39→20:44)
[2019-03-09] MEDS: LISINOPRIL 10 MG TAB PO SCH (07:40)
[2019-03-09] MEDS: SODIUM CHLORIDE 0.9% 1,000 ML IV SCH ×3 (07:40→23:53)
--- NOTE | 2019-03-09 15:25 | P.PN ---
<Ledy Peter Janel - Last Filed: 03/09/19 15:22> Subjective Progress Note Date: 03/09/19 CHIEF COMPLAINT: Abdominal pain HISTORY OF PRESENT ILLNESS: Patient examined this morning at the bedside. He reports 2 loose bowel movements this morning. He is tolerating full liquid diet. Denies nausea or vomiting. He reports feeling mildly bloated. Stool cultures remain in progress. PHYSICAL EXAM: VITAL SIGNS: Reviewed. GENERAL: Well-developed in no acute distress. HEENT: No sclera icterus. Extraocular movements grossly intact. Moist buccal mucosa. Head is atraumatic, normocephalic. ABDOMEN: Soft. Mildly distended. Nontender. Small umbilical hernia. NEUROLOGIC: Alert and oriented. Cranial nerves II through XII grossly intact. ASSESSMENT: 1. Ileus PLAN: Loose stools are improving. Await final stool culture. Continue full liquid diet. Nurse practitioner note has been reviewed by physician. Signing provider agrees with the documented findings, assessment, and plan of care. Objective - Vital Signs Vital signs: Vital Signs Temp 98.0 F 03/09/19 06:28 Pulse 86 03/09/19 06:28 Resp 16 03/09/19 06:28 BP 106/63 03/09/19 06:28 Pulse Ox 97 03/09/19 06:28 Intake & Output 03/08/19 03/09/19 03/09/19 18:59 06:59 18:59 Intake Total 1500 2030 200 Balance 1500 2030 200 Intake: Intake, IV Titration 700 1100 Amount Sodium Chloride 0.9% 1, 700 1100 000 ml @ 100 mls/hr IV . Q10H [facility] Rx#:[id number] Oral 800 930 200 Other: Voiding Method Toilet Toilet Toilet # Voids 2 # Bowel Movements 6 - Labs CBC & Chem 7: 03/08/19 06:26 03/08/19 06:26 Labs: Microbiology - Last 24 Hours (Table) 03/07/19 08:00 Stool Culture - Preliminary Stool <Nic Jean - Last Filed: 03/09/19 17:28> Subjective As above. Patient improving. Frequency of diarrhea is less. Pain is absent. Feels less bloated. Stool culture still pending. Will advance diet to regular. Anticipate discharge tomorrow. Objective - Vital Signs Vital signs: Vital Signs Temp 99.4 F 03/09/19 14:22 Pulse 94 03/09/19 14:22 Resp 16 03/09/19 14:22 BP 124/71 03/09/19 14:22 Pulse Ox 98 03/09/19 14:22 Intake & Output 03/08/19 03/09/19 03/09/19 18:59 06:59 18:59 Intake Total 1500 2030 400 Balance 1500 2030 400 Intake: Intake, IV Titration 700 1100 Amount Sodium Chloride 0.9% 1, 700 1100 000 ml @ 100 mls/hr IV . Q10H [facility] Rx#:[id number] Oral 800 930 400 Other: Voiding Method Toilet Toilet Toilet # Voids 2 2 # Bowel Movements 6 - Labs CBC & Chem 7: 03/08/19 06:26 03/08/19 06:26 Assessment and Plan (1) Ileus Current Visit: Yes Status: Acute Code(s): K56.7 - ILEUS, UNSPECIFIED [facility] Code(s): 949035957
[2019-03-09] MEDS: ATORVASTATIN 10 MG TAB PO SCH (20:44)
--- NOTE | 2019-03-10 00:28 | P.PN ---
Progress Note - Text Progress Note Date: 03/09/19 Chief Complaint: Abdominal pain Interval history: This is a very pleasant 48-year-old patient of Dr. Mcdaniel. Patient has a chronic history of atrial fibrillation. Not felt to be a candidate for anticoagulation. Patient been having some loose stools for a few days. 2 days ago started having central abdominal pain and distention. Presented to the ER but the pain became more. Found to have a umbilical hernia, that was reduced. Patient felt okay subsequently against patient started having more abdominal pain and distention. No fever no chills. Computed tomography scan of the abdomen showed air and fluid-filled small bowel loops in the mid abdomen. Also was noted to Brost placed mitral hernia with no evidence of any incarcerated hernia.. Patient is felt to ileus. Patient denies any prior abdominal surgery. General surgery was consulted. This morning patient feeling a bit better. Has positive flatus. Slight decrease in abdominal distention. There wasn't felt any need for NG tube. No fever no chills. Admitted with possible ileus, could be from viral ileitis Today-did tolerate clear liquids. Advance to full liquids. Having stools. Abdomen less distended. Has been up in the hallway. No nausea vomiting Review of systems: Was done for constitutional, cardiovascular, GI, pulmonary. relevant finding as above Active Medications Atorvastatin Calcium (Lipitor) 10 mg PO HS [facility] Last Admin: 03/09/19 20:44 Dose: 10 mg Documented by: Famotidine (Pepcid) 20 mg IV Q12HR [facility] Last Admin: 03/09/19 20:44 Dose: 20 mg Documented by: Heparin Sodium (Porcine) (Heparin) 5,000 unit SQ Q8HR [facility] Last Admin: 03/09/19 20:50 Dose: Not Given Documented by: Sodium Chloride (Saline 0.9%) 1,000 mls @ 100 mls/hr IV .Q10H [facility] Last Admin: 03/09/19 23:53 Dose: 100 mls/hr Documented by: Lisinopril (Zestril) 10 mg PO DAILY [facility] Last Admin: 03/09/19 07:40 Dose: 10 mg Documented by: Morphine Sulfate (Morphine Sulfate (Inj)) 4 mg IV Q4HR PRN PRN Reason: Severe Pain Last Admin: 03/07/19 11:55 Dose: 4 mg Documented by: Naloxone HCl (Narcan) 0.2 mg IV Q2M PRN PRN Reason: Opioid Reversal Ondansetron HCl (Zofran) 4 mg IVP Q8HR PRN PRN Reason: Nausea And Vomiting Physical examination: VITAL SIGNS: 99.4, 94, 16, 124/71, 98% room air GENERAL: Propped up, comfortable EYES: Pupils equal. Conjunctiva normal. HEENT: External appearance of nose and ears normal, oral cavity grossly normal. NECK: JVD not raised; masses not palpable. HEART: First and second heart sounds are normal; no edema. LUNGS: Respiratory rate normal; clear to auscultation. ABDOMEN: Less Distended, minimal tenderness, no guarding or rigidity, bowel sounds are hyperactive liver spleen not palpable. PSYCH: Alert and oriented x3; mood and affect normal. INVESTIGATIONS, reviewed in the clinical context: White count 7.4 hemoglobin 14.8 progression 3.7 creatinine 0.95 Abdominal x-ray still showing some gas-filled dilated small bowel with air-fluid levels Previous testing White count 8.4 hemoglobin 6.7 platelets 313 potassium 3.7 creatinine 1.0 Computed tomography scan of the abdomen-umbilical hernia with no incarceration, evidence of small bowel ileus with questionable partial obstruction Abdominal x-ray from March 05-personally reviewed by me-shows dilatation of the small bowel Assessment: -Small bowel ileus versus partial obstruction. Probable viral ileitis causing ileus, improving -Umbilical hernia-with no obstruction -Obesity BMI 33.3 -Paroxysmal atrial fibrillation currently sinus rhythm Plan: full liquid diet. Continue the same. Slowly improving. Care discussed with the patient.
[2019-03-10 07:55] LABS: African American GFR (CKD) >90 (>60 ml/min/1.73 sqM); Anion Gap 9 mmol/L; Blood Urea Nitrogen 6 mg/dL (9-20); Calcium 8.8 mg/dL (8.4-10.2); Carbon Dioxide 24 mmol/L (22-30); Chloride 106 mmol/L (98-107); Glucose 101 mg/dL (74-99); Non-African American GFR(CKD) >90 (>60 ml/min/1.73 sqM); Potassium 3.2 mmol/L (3.5-5.1); Sodium 139 mmol/L (137-145)
[2019-03-10 08:18] VITALS: BP 134/85; PULSE 89; TEMP 98.4
[2019-03-10] MEDS ORDERED: POTASSIUM CHLORIDE ER 20 MEQ TAB.ER PO STA (08:18)
[2019-03-10] MEDS: FAMOTIDINE 20 MG/2 ML VIAL IV SCH (09:02)
[2019-03-10] MEDS: LISINOPRIL 10 MG TAB PO SCH (09:02)
[2019-03-10] MEDS: HEPARIN SODIUM,PORCINE 5,000 UNIT/ML 1 ML VIAL SQ SCH (09:03)
--- NOTE | 2019-03-10 09:35 | P.PN ---
Subjective Progress Note Date: 03/10/19 Principal diagnosis: Abdominal pain Patient doing well today. Denies pain. Bloating improved. 2 loose stools since midnight. He would like to try going home today. His tolerating his diet. Objective - Vital Signs Vital signs: Vital Signs Temp 98.4 F 03/10/19 07:00 Pulse 89 03/10/19 07:00 Resp 16 03/10/19 07:00 BP 134/85 03/10/19 07:00 Pulse Ox 94 L 03/10/19 07:00 Intake & Output 03/09/19 03/10/19 03/10/19 18:59 06:59 18:59 Intake Total 400 2240 235 Balance 400 2240 235 Intake: Intake, IV Titration 1200 Amount Sodium Chloride 0.9% 1, 1200 000 ml @ 100 mls/hr IV . Q10H [facility] Rx#:[id number] Oral 400 1040 235 Other: Voiding Method Toilet Toilet # Voids 2 4 - Exam Abdomen: Soft, nontender, nondistended, small reducible umbilical hernia - Labs CBC & Chem 7: 03/08/19 06:26 03/10/19 07:08 Labs: Abnormal Lab Results - Last 24 Hours (Table) 03/10/19 Range/Units 07:08 Potassium 3.2 L (3.5-5.1) mmol/L BUN 6 L (9-20) mg/dL Glucose 101 H (74-99) mg/dL Assessment and Plan (1) Ileus Narrative/Plan: Patient doing better. Stool cultures still pending. Anticipate probable discharge today. Follow up outpatient for evaluation of hernia at some point in the future. Current Visit: Yes Status: Acute Code(s): K56.7 - ILEUS, UNSPECIFIED [facility] Code(s): 875922950
--- NOTE | 2019-03-12 12:29 | P.DS ---
Providers Date of admission: 03/07/19 01:50 Expected date of discharge: 03/10/19 Attending physician: Darek Ceja Consults: 03/07/19 01:48 Consult Physician Urgent Consulting Provider: Nic Jean Reason/Comments: abd pain, umbilical hernia, possible sbo vs ileus Do you want consulting provider notified?: Yes, Notify in am Primary care physician: Yohan Mcdaniel [facility] Course: Chief Complaint: Abdominal pain Hospital course: This is a very pleasant 48-year-old patient of Dr. Mcdaniel. Patient has a chronic history of atrial fibrillation. Not felt to be a candidate for anticoagulation. Patient been having some loose stools for a few days. 2 days ago started having central abdominal pain and distention. Presented to the ER but the pain became more. Found to have a umbilical hernia, that was reduced. Patient felt okay subsequently , again patient started having more abdominal pain and distention. No fever no chills. Computed tomography scan of the abdomen showed air and fluid-filled small bowel loops in the mid abdomen. Also was noted to partial obstruction of the ventral hernia with no evidence of any incarcerated hernia.. Patient is felt to ileus. Patient denies any prior abdominal surgery. General surgery was consulted. This morning patient feeling a bit better. Has positive flatus. Slight decrease in abdominal distention. There wasn't felt any need for NG tube. No fever no chills. Admitted with possible ileus, could be from viral ileitis. Patient was managed conservatively. Ambulatory. Patient diarrhea started improving. Abdominal distention improved. Diet was advanced. Tolerating the same. Cleared by general surgery to be discharged. Patient feeling much better by the time of d ischarge. Care was discussed with the patient. Consultation: Dr. max restrepo from general surgery Physical examination: VITAL SIGNS: 98.4, 89, 16, 134/85, 94% room air GENERAL: Propped up, comfortable EYES: Pupils equal. Conjunctiva normal. HEENT: External appearance of nose and ears normal, oral cavity grossly normal. NECK: JVD not raised; masses not palpable. HEART: First and second heart sounds are normal; no edema. LUNGS: Respiratory rate normal; clear to auscultation. ABDOMEN: Soft, no tenderness, no guarding or rigidity, bowel sounds present, liver spleen not palpable. PSYCH: Alert and oriented x3; mood and affect normal. INVESTIGATIONS, reviewed in the clinical context: White count 7.4 hemoglobin 14.8 potassium 3.2 creatinine 0.89 Previous testing White count 8.4 hemoglobin 6.7 platelets 313 potassium 3.7 creatinine 1.0 Computed tomography scan of the abdomen-umbilical hernia with no incarceration, evidence of small bowel ileus with questionable partial obstruction Abdominal x-ray from March 05-personally reviewed by me-shows dilatation of the small bowel Assessment: -Viral ileitis felt to cause, Small bowel ileus -Umbilical hernia-with no obstruction -Obesity BMI 33.3 -Paroxysmal atrial fibrillation currently sinus rhythm Disposition: Home Patient Condition at Discharge: Stable Plan - Discharge Summary Discharge Rx Participant: Yes New Discharge Prescriptions: Continue Simvastatin [Zocor] 20 mg PO HS Lisinopril [Prinivil] 10 mg PO DAILY Flecainide [Tambocor] 50 mg PO Q12HR PRN PRN Reason: AFIB Discharge Medication List Flecainide [Tambocor] 50 mg PO Q12HR PRN 03/05/19 [History] Lisinopril [Prinivil] 10 mg PO DAILY 03/05/19 [History] Simvastatin [Zocor] 20 mg PO HS 03/05/19 [History] Follow up Appointment(s)/Referral(s): Nic Jean MD [Medical Doctor] - As Needed Yaakov Mcdaniel MD [Primary Care Provider] - 1-2 days (office will call with appointment time) Patient Instructions/Handouts: Umbilical Hernia (DC), Ileus (DC) Activity/Diet/Wound Care/Special Instructions: Soft bland diet May return to work on 03/13/19 with no restrictions. Discharge/Stand Alone Forms: Work/School Release / Restrict Discharge Disposition: HOME SELF-CARE
== END 2019-03-10 15:25 | disposition home or self-care (01) ==
LOC: EC 22:45 → 4SSUR 03-07 01:50 → INTOOBSV 03-07 01:50 → UNDODISIN 03-10 15:25
PROVIDERS: ADMIT Hospitalist; ATTEND Hospitalist
DX: A08.4 Viral intestinal infection, unspecified (principal); K56.7 Ileus, unspecified; I48.0 Paroxysmal atrial fibrillation; E66.9 Obesity, unspecified; K42.9 Umbilical hernia without obstruction or gangrene; Z68.33 Body mass index [BMI] 33.0-33.9, adult; Z79.899 Other long term (current) drug therapy; Z88.5 Allergy status to narcotic agent; Z82.49 Family history of ischemic heart disease and other diseases of the circulatory system
CPT/HCPCS: 96376 ×3; 96361 ×2; 96375; 96374; 99285; 36415; 80053; 80048 ×2; 83605; 85025 ×2; 85610; 85730; 81001; 87324; 87045; 87046; 74019; 74177; G0378 ×4; J2270; Q9967

== ENCOUNTER 2020-08-26 14:53 | Emergency (ER) | payer BC ==
[2020-08-26 15:06] VITALS: BP 121/81; PULSE 94; RESP 20; TEMP 98
--- NOTE | 2020-08-26 16:02 | XR ---
RESULT: HISTORY: Left fifth toe TECHNIQUE: 3 views of the left fifth toe. COMPARISON: None. FINDINGS: There is displaced extra-articular fracture of the little toe proximal phalangeal base. No evidence o f dislocation or radiopaque foreign body. IMPRESSION: Little toe proximal phalanx fracture.
--- NOTE | 2020-08-26 16:22 | ED ---
Lower Extremity Injury HPI - General Chief Complaint: Extremity Injury, Lower Stated Complaint: L Toe Injury Time Seen by Provider: 08/26/20 15:10 Source: patient Mode of arrival: ambulatory Limitations: no limitations - History of Present Illness Initial Comments: 50-year-old male presents to the emergency department with a chief complaint of left toe pain. This occurred about 2 hours prior to arrival. Patient reports he accidentally hit it against an object. He reports it feels and appears slightly deviated laterally. He reports pain with palpation to the base of the toe. He denies any numbness or tingling. Reports he took and [place] for the pain. Place: home Severity: moderate Worsens With: weight bearing Context: walking - Related Data Home Medications Medication Instructions Recorded Confirmed Flecainide [Tambocor] 50 mg PO Q12HR PRN 03/05/19 03/07/19 Lisinopril [Prinivil] 10 mg PO DAILY 03/05/19 03/07/19 Simvastatin [Zocor] 20 mg PO HS 03/05/19 03/07/19 Allergies Allergy/AdvReac Type Severity Reaction Status Date / Time codeine Allergy Unknown Verified 08/26/20 15:06 Review of Systems ROS Statement: Those systems with pertinent positive or pertinent negative responses have been documented in the HPI. ROS Other: All systems not noted in ROS Statement are negative. Past Medical History Past Medical History: Atrial Fibrillation History of Any Multi-Drug Resistant Organisms: None Reported Past Surgical History: Orthopedic Surgery Additional Past Surgical History / Comment(s): Hip 1976, rotational osteotomy Past Anesthesia/Blood Transfusion Reactions: No Reported Reaction Past Psychological History: No Psychological Hx Reported Smoking Status: Never smoker Past Alcohol Use History: None Reported Past Drug Use History: None Reported - Past Family History Mother Family Medical History: Myocardial Infarction ([place]) General Exam Limitations: no limitations General appearance: alert, in no apparent distress, obese Head exam: Present: atraumatic, normocephalic, normal inspection Eye exam: Present: normal appearance, PERRL, EOMI Pupils: Present: normal accommodation ENT exam: Present: normal exam, normal oropharynx, mucous membranes moist Neck exam: Present: normal inspection, full ROM. Absent: tenderness Respiratory exam: Present: normal lung sounds bilaterally. Absent: respiratory distress Cardiovascular Exam: Present: regular rate, normal rhythm, normal heart sounds. Absent: systolic murmur Extremities exam: Present: full ROM, tenderness (Tenderness at the base of the left), normal capillary refill, other (Palpable DP and PT bilaterally). Absent: normal inspection (slight deviation laterally of the left fifth toe), pedal edema, joint swelling, calf tenderness Back exam: Present: normal inspection, full ROM. Absent: tenderness Neurological exam: Present: alert, oriented X3 Psychiatric exam: Present: normal affect, normal mood Skin exam: Present: warm, dry, intact, normal color Course Vital Signs 08/26/20 15:03 Temperature 98.0 F Pulse Rate 94 Respiratory 20 Rate Blood Pressure 121/81 O2 Sat by Pulse 99 Oximetry Procedures - Orthopedic Fracture Reduction Fracture #1 Consent Obtained: verbal consent, written consent Side: left Fracture Reduction Location: toe Analgesia: none Technique: direct manipulation Post-Reduction Neuro Exam: intact Post-Reduction Vascular Exam: intact Patient Tolerated Procedure: well, no complications - Orthopedic Splinting/Casting Injury #1 Side: left Upper Extremity Immobilizer: maya tape Lower Extremity Injury Location: toe Medical Decision Making - Medical Decision Making 50-year-old male presents to emergency Department with a chief complaint of left toe pain. Patient is neurovascularly intact. X-ray reveals a displaced extra- articular fracture of the left fifth toe proximal phalangeal base. I was able to reduce the fracture but did not obtain a postop x-ray. [employer]. They will follow up with an outpatient extension service specialist. Return parameters d iscussed the patient was attending ago. Case discussed with Dr. Juarez Disposition Clinical Impression: Fracture of fifth toe, left, closed Disposition: HOME SELF-CARE Condition: Stable Instructions (If sedation given, give patient instructions): Toe Fracture (ED) Additional Instructions: Please return to the Emergency Department if symptoms worsen or any other concerns. Follow-up with extension service specialist Is patient prescribed a controlled substance at d/c from ED?: No Referrals: Yaakov Mcdaniel MD [Primary Care Provider] - 1-2 days Sahil Babb DO [Doctor of Osteopathic Medicine] - 1-2 days Time of Disposition: 16:21
== END 2020-08-26 16:25 | disposition home or self-care (01) ==
LOC: EC 14:53
DX: S92.512A Displaced fracture of proximal phalanx of left lesser toe(s), initial encounter for closed fracture (principal); W22.8XXA Striking against or struck by other objects, initial encounter; Y93.01 Activity, walking, marching and hiking; Y92.009 Unspecified place in unspecified non-institutional (private) residence as the place of occurrence of the external cause; Z88.5 Allergy status to narcotic agent
CPT/HCPCS: 28515; 99283

== ENCOUNTER 2021-02-19 11:43 | Emergency (ER) | payer BC ==
[2021-02-19 14:31] VITALS: TEMP 98
[2021-02-19] MEDS ORDERED: HYDROmorphone 0.5 MG/0.5 ML SYRINGE IVP STA (14:55)
[2021-02-19 15:40] LABS: Basophils # (A) 0.1 k/uL (0-0.2); Basophils % (A) 1 %; Eosinophils # (A) 0.1 k/uL (0-0.7); Eosinophils % (A) 1 %; HCT 48.1 % (39.0-53.0); HGB 16.1 gm/dL (13.0-17.5); Lymphocytes # (A) 2.4 k/uL (1.0-4.8); Lymphocytes % (A) 23 %; MCH 30.4 pg (25.0-35.0); MCHC 33.4 g/dL (31.0-37.0); Mean Platelet Volume 8.2; Monocytes # (A) 0.5 k/uL (0-1.0); Monocytes % (A) 5 %; Neutrophils # (A) 7.2 k/uL (1.3-7.7); Neutrophils % (A) 68 %; Platelet Count 287 k/uL (150-450); RBC 5.28 m/uL (4.30-5.90); RDW 13.4 % (11.5-15.5); WBC 10.5 k/uL (3.8-10.6)
[2021-02-19 15:58] LABS: ALT 50 U/L (4-49); AST 43 U/L (17-59); African American GFR (CKD) >90 (>60 ml/min/1.73 sqM); Albumin 4.9 g/dL (3.5-5.0); Alkaline Phosphatase 88 U/L (38-126); Anion Gap 10 mmol/L; Blood Urea Nitrogen 16 mg/dL (9-20); Calcium 9.5 mg/dL (8.4-10.2); Carbon Dioxide 20 mmol/L (22-30); Chloride 105 mmol/L (98-107); Glucose 94 mg/dL (74-99); Magnesium 2.2 mg/dL (1.6-2.3); Non-African American GFR(CKD) >90 (>60 ml/min/1.73 sqM); Sodium 135 mmol/L (137-145); Total Bilirubin 0.6 mg/dL (0.2-1.3); Total Protein 8.2 g/dL (6.3-8.2)
[2021-02-19 16:06] LABS: Potassium 5.4 mmol/L (3.5-5.1)
[2021-02-19 16:17] LABS: INR 0.9 (<1.2)
[2021-02-19 16:18] LABS: Prothrombin Time 10.1 sec (9.0-12.0)
[2021-02-19] MEDS ORDERED: diazePAM 5 MG TAB PO STA (17:55)
--- NOTE | 2021-02-19 18:40 | XR ---
EXAMINATION TYPE: XR chest 1V portable DATE OF EXAM: 02/19/2021 COMPARISON: 02/05/2014 HISTORY: Chest pain TECHNIQUE: FINDINGS: There is no heart failure nor confluent pneumonic infiltrate. Costophrenic angles are clear . There are no hilar masses. There is some mild rib deformity with small upper ribs. IMPRESSION: No cardiopulmonary disease. No change.
[2021-02-19 18:56] VITALS: BP 138/90; PULSE 67; RESP 16
--- NOTE | 2021-02-19 19:13 | ED ---
Upper Extremity HPI - General Chief Complaint: Extremity Injury, Upper Stated Complaint: Pain in shoulder blade down arm Time Seen by Provider: 02/19/21 14:34 Source: patient Mode of arrival: ambulatory Limitations: no limitations - History of Present Illness Initial Comments: Patient complains of pain in the middle of the back radiating to the left arm. He has no head or neck injury. Patient states that this began while doing some lifting yesterday. He has no fevers or chills. He has no weakness. He has no paresthesias. He has no nausea or vomiting or diaphoresis. He doesn't feel short of breath. He has no pain in the chest. He has no tightness in the chest. He has no exertional symptoms. - Related Data Home Medications Medication Instructions Recorded Confirmed Flecainide [Tambocor] 50 mg PO Q12HR PRN 03/05/19 03/07/19 Lisinopril [Prinivil] 10 mg PO DAILY 03/05/19 03/07/19 Simvastatin [Zocor] 20 mg PO HS 03/05/19 03/07/19 Previous Rx's Medication Instructions Recorded Methocarbamol [Robaxin-750] 1,500 mg PO BID PRN #15 tablet 02/19/21 Allergies Allergy/AdvReac Type Severity Reaction Status Date / Time codeine Allergy Unknown Verified 02/19/21 14:28 Review of Systems ROS Statement: Those systems with pertinent positive or pertinent negative responses have been documented in the HPI. ROS Other: All systems not noted in ROS Statement are negative. Past Medical History Past Medical History: Atrial Fibrillation History of Any Multi-Drug Resistant Organisms: None Reported Past Surgical History: Orthopedic Surgery Additional Past Surgical History / Comment(s): Hip 1976, rotational osteotomy Past Anesthesia/Blood Transfusion Reactions: No Reported Reaction Past Psychological History: No Psychological Hx Reported Smoking Status: Never smoker Past Alcohol Use History: None Reported Past Drug Use History: None Reported - Past Family History Mother Family Medical History: Myocardial Infarction ([place]) General Exam Limitations: no limitations General appearance: alert, in no apparent distress Head exam: Present: atraumatic, normocephalic, normal inspection Eye exam: Present: normal appearance, PERRL, EOMI. Absent: scleral icterus, conjunctival injection, periorbital swelling ENT exam: Present: normal exam, mucous membranes moist Neck exam: Present: normal inspection. Absent: tenderness, meningismus, lymphadenopathy Respiratory exam: Present: normal lung sounds bilaterally. Absent: respiratory distress, wheezes, rales, rhonchi, stridor Cardiovascular Exam: Present: regular rate, normal rhythm, normal heart sounds. Absent: systolic murmur, diastolic murmur, rubs, gallop, clicks GI/Abdominal exam: Present: soft, normal bowel sounds. Absent: distended, tenderness, guarding, rebound, rigid Extremities exam: Present: normal inspection, full ROM, normal capillary refill. Absent: tenderness, pedal edema, joint swelling, calf tenderness Back exam: Present: normal inspection Neurological exam: Present: alert, oriented X3, CN II-XII intact Psychiatric exam: Present: normal affect, normal mood Skin exam: Present: warm, dry, intact, normal color. Absent: rash Course Vital Signs 02/19/21 02/19/21 14:28 18:55 Temperature 98 F Pulse Rate 91 67 Respiratory 20 16 Rate Blood Pressure 138/90 O2 Sat by Pulse 97 99 Oximetry Medical Decision Making - Medical Decision Making Patient presents with back and arm pain. His exam is unremarkable. His workup is negative. I can find no evidence of any acute emergency. He is feeling better after a muscle rocks her. He is stable for discharge. He is neurovascularly intact throughout and tolerates oral intake. - Lab Data Result diagrams: 02/19/21 15:30 02/19/21 15:30 Lab Results 02/19/21 02/19/21 02/19/21 Range/Units 15:30 15:30 15:30 WBC 10.5 (3.8-10.6) k/uL RBC 5.28 (4.30-5.90) m/uL Hgb 16.1 (13.0-17.5) gm/dL Hct 48.1 (39.0-53.0) % MCV 91.0 (80.0-100.0) fL MCH 30.4 (25.0-35.0) pg MCHC 33.4 (31.0-37.0) g/dL RDW 13.4 (11.5-15.5) % Plt Count 287 (150-450) k/uL MPV 8.2 Neutrophils % 68 % Lymphocytes % 23 % Monocytes % 5 % Eosinophils % 1 % Basophils % 1 % Neutrophils # 7.2 (1.3-7.7) k/uL Lymphocytes # 2.4 (1.0-4.8) k/uL Monocytes # 0.5 (0-1.0) k/uL Eosinophils # 0.1 (0-0.7) k/uL Basophils # 0.1 (0-0.2) k/uL PT 10.1 (9.0-12.0) sec INR 0.9 (<1.2) APTT 26.0 (22.0-30.0) sec D-Dimer 0.51 (<0.60) mg/L FEU Sodium 135 L (137-145) mmol/L Potassium 5.4 H (3.5-5.1) mmol/L Chloride 105 (98-107) mmol/L Carbon Dioxide 20 L (22-30) mmol/L Anion Gap 10 mmol/L BUN 16 (9-20) mg/dL Creatinine 0.71 (0.66-1.25) mg/dL Est GFR (CKD-EPI)AfAm >90 (>60 ml/min/1.73 sqM) Est GFR (CKD-EPI)NonAf >90 (>60 ml/min/1.73 sqM) Glucose 94 (74-99) mg/dL Calcium 9.5 (8.4-10.2) mg/dL Magnesium 2.2 (1.6-2.3) mg/dL Total Bilirubin 0.6 (0.2-1.3) mg/dL AST 43 (17-59) U/L ALT 50 H (4-49) U/L Alkaline Phosphatase 88 (38-126) U/L Troponin I (0.000-0.034) ng/mL NT-Pro-B Natriuret Pep pg/mL Total Protein 8.2 (6.3-8.2) g/dL Albumin 4.9 (3.5-5.0) g/dL 02/19/21 02/19/21 Range/Units 15:30 15:30 WBC (3.8-10.6) k/uL RBC (4.30-5.90) m/uL Hgb (13.0-17.5) gm/dL Hct (39.0-53.0) % MCV (80.0-100.0) fL MCH (25.0-35.0) pg MCHC (31.0-37.0) g/dL RDW (11.5-15.5) % Plt Count (150-450) k/uL MPV Neutrophils % % Lymphocytes % % Monocytes % % Eosinophils % % Basophils % % Neutrophils # (1.3-7.7) k/uL Lymphocytes # (1.0-4.8) k/uL Monocytes # (0-1.0) k/uL Eosinophils # (0-0.7) k/uL Basophils # (0-0.2) k/uL PT (9.0-12.0) sec INR (<1.2) APTT (22.0-30.0) sec D-Dimer (<0.60) mg/L FEU Sodium (137-145) mmol/L Potassium (3.5-5.1) mmol/L Chloride (98-107) mmol/L Carbon Dioxide (22-30) mmol/L Anion Gap mmol/L BUN (9-20) mg/dL Creatinine (0.66-1.25) mg/dL Est GFR (CKD-EPI)AfAm (>60 ml/min/1.73 sqM) Est GFR (CKD-EPI)NonAf (>60 ml/min/1.73 sqM) Glucose (74-99) mg/dL Calcium (8.4-10.2) mg/dL Magnesium (1.6-2.3) mg/dL Total Bilirubin (0.2-1.3) mg/dL AST (17-59) U/L ALT (4-49) U/L Alkaline Phosphatase (38-126) U/L Troponin I 0.022 (0.000-0.034) ng/mL NT-Pro-B Natriuret Pep 31 pg/mL Total Protein (6.3-8.2) g/dL Albumin (3.5-5.0) g/dL 02/19/21 19:11 Twelve-lead EKG shows ventricular rate 82 bpm, normal IN interval, there is a right bundle branch block, no ST elevation or depression, interpreted by me as normal sinus rhythm. Disposition Clinical Impression: Musculoskeletal arm pain Disposition: HOME SELF-CARE Condition: Good Prescriptions: Methocarbamol [Robaxin-750] 1,500 mg PO BID PRN #15 tablet PRN Reason: Muscle Pain Is patient prescribed a controlled substance at d/c from ED?: No Referrals: Yaakov Mcdaniel MD [Primary Care Provider] - 1-2 days
== END 2021-02-19 19:52 | disposition home or self-care (01) ==
LOC: EC 11:43
DX: M79.622 Pain in left upper arm (principal); X50.0XXA Overexertion from strenuous movement or load, initial encounter
CPT/HCPCS: 36415; 93005; 85379; 83880; 80053; 83735; 84484; 85025; 85610; 85730; 71045; 96374; 99284; J1170

== ENCOUNTER → 2023-04-08 | Outpatient (CLI) | payer BC ==
[2023-04-08 15:24] LABS: HCT 42.9 % (39.6-50.0); HGB 14.4 g/dL (13.0-17.0); MCH 29.9 pg (27.0-32.0); MCHC 33.6 g/dL (32.0-37.0); MCV 89.2 FL (80.0-97.0); Mean Platelet Volume 11.3 FL (9.5-12.2); NRBC Per 100 WBC 0 X 10*3/uL (0.00-0.01); Platelet Count 260 X 10*3/uL (140-440); RBC 4.81 X 10*6/uL (4.40-5.60); RDW 13.2 % (11.5-14.5); WBC 8.05 X 10*3/uL (4.50-10.00)
[2023-04-08 15:31] LABS: BUN/Creat Ratio 13.78 Ratio (12.00-20.00); Blood Urea Nitrogen 12.4 mg/dL (9.0-27.0); Glucose 289 mg/dL (70-110)
[2023-04-08 15:32] LABS: ALT 38 U/L (10-49); AST 17 U/L (14-35); Calcium 9.4 mg/dL (8.7-10.3); Carbon Dioxide 23.3 mmol/L (21.6-31.8); Chloride 101 mmol/L (96-109); Potassium 3.8 mmol/L (3.5-5.5); Sodium 138 mmol/L (135-145)
== END | disposition home or self-care (01) ==
LOC: LABWHC1 08:50
PROVIDERS: ATTEND Internal Medicine Cardiovascular Disease
DX: E78.2 Mixed hyperlipidemia (principal)
CPT/HCPCS: 36415; 80048; 80061; 84450; 84460; 85027